=== PATIENT | female | born 1950 | race Caucasian/White ===

== ENCOUNTER → 2016-11-19 | Outpatient (CLI) | payer OTHER, MEDICARE ==
[2016-02-06 16:00] VITALS: BP 150/65
[~2016-11-19] MED LIST: ASCO500C PO; ASPI-630 PO; ATOR20TA PO; CALC-77 PO; CHOL10003 PO; CYAN500T PO; DICL1TAB5 PO; ESTR1TAB15 PO; FERR325T58 PO; LANS30CA66 PO; LORA10TA68 PO; METO25TA2 PO; MULT-246 PO; OMEG300C PO; SOLI5TAB2 PO; SUCR1TAB PO; TRAM50TA PO; VALS1TAB22 PO; [UNRECOGNIZED DRUG - CODE] PO; [UNRECOGNIZED DRUG - OTHER]
--- NOTE | 2016-11-19 08:38 | RAD ---
Indication: Shortness of breath. Time of exam 0832 hours. Correlation is made with prior exam from 09/09/2016. FINDINGS: The heart size is normal. The lungs are clear. No pleural effusion or pneumothorax is identified. The pulmonary vascularity is normal. IMPRESSION: No acute abnormality detected.
== END | disposition home or self-care (01) ==
LOC: DXRADRC 08:27
PROVIDERS: ATTEND Physician Assistant Medical
DX: R06.02 Shortness of breath (principal); R05 Cough
CPT/HCPCS: 71020

== ENCOUNTER → 2018-08-20 | Outpatient (CLI) | payer OTHER, MEDICARE ==
[2016-02-06 16:00] VITALS: BP 150/65
[~2018-08-20] MED LIST changes: -CYAN500T PO; +CYAN500T2 PO
--- NOTE | 2018-08-20 09:31 | RAD ---
CHEST PA LATERAL History: Cough for one week Comparison: November 19, 2016 Findings: 2 views of the chest are submitted. There is no infiltrate, pneumothorax, or effusion. The cardiac silhouette is within normal limits in size. Impression: 1. No acute radiographic abnormality is identified. Electronically signed by: Som Shields MD (08/20/2018 9:26 AM) [id number]
== END | disposition home or self-care (01) ==
LOC: PMG 08:58
PROVIDERS: ATTEND Physician Assistant
DX: R05 Cough (principal)
CPT/HCPCS: 71046

== ENCOUNTER → 2018-09-06 | Outpatient (CLI) | payer OTHER, MEDICARE ==
[2016-02-06 16:00] VITALS: BP 150/65
[~2018-09-06] MED LIST changes: +CYAN500T PO; -CYAN500T2 PO
--- NOTE | 2018-09-06 11:20 | RAD ---
Chest, PA and Lateral: Technique: PA and lateral views of the chest were obtained. History: Chronic cough. Comparison: 08/20/2018. Findings: The heart and pulmonary vasculature appear within normal limits. The lungs are clear. The pleural margins are clear. Mild degenerative changes thoracic spine. Impression: No acute chest process is seen. Electronically signed by: Rigoberto Bonner MD (09/06/2018 11:17 AM) [id number]
== END | disposition home or self-care (01) ==
LOC: PMG 09:29
PROVIDERS: ATTEND Family Medicine
DX: J40 Bronchitis, not specified as acute or chronic (principal); M47.894 Other spondylosis, thoracic region
CPT/HCPCS: 71046

== ENCOUNTER → 2019-02-15 | Outpatient (CLI) | payer OTHER, MEDICARE ==
[2016-02-06 16:00] VITALS: BP 150/65
[~2019-02-15] MED LIST changes: -CYAN500T PO; +CYAN500T2 PO
--- NOTE | 2019-02-15 13:30 | RAD ---
EXAM: Lumbar spine, 5 views. HISTORY: Pain. COMPARISON: None. FINDINGS: 5 views lumbar spine are obtained. There is a transitional lumbosacral segment, considered a partially lumbarized S1 segment for this dictation. There is lumbar dextroscoliosis centered at L4-L5. There is grade 1 anterolisthesis of L5 on S1. There is degenerative endplate remodeling with disc space narrowing and osteophytosis primarily along the right aspect of L1-L2 and left aspect of L4-L5. This corresponds with levels of maximum scoliotic curvature. There is disc space narrowing predominantly at L5-S1. There are calcifications and clips. IMPRESSION: 1. Transitional lumbosacral segment, considered S1 for this dictation. 2. Lumbar scoliosis and grade 1 anterolisthesis of L5 on S1. 3. Multilevel degenerative change throughout the lumbar spine, primarily at levels of maximum scoliotic curvature and at the lumbosacral junction. Electronically signed by: Nicole Guzmán MD (02/15/2019 1:27 PM) [id number]
--- NOTE | 2019-02-15 14:15 | RAD ---
EXAM: Bilateral knees, 3 views. HISTORY: Pain. COMPARISON: None. FINDINGS: 3 views of both knees are obtained. There is a right knee arthroplasty in expected position. There is a small right knee effusion. There is left knee medial compartment joint space narrowing with subchondral sclerosis. There is severe left patellofemoral, moderate left medial and mild left lateral compartment spurring. There is a small left knee effusion. There are left knee joint loose bodies. IMPRESSION: 1. Severe left patellofemoral compartment predominant osteoarthritis of the left knee with small joint effusion and joint loose bodies. 2. Right knee arthroplasty in expected position. There is a small right knee effusion. Electronically signed by: Nicole Guzmán MD (02/15/2019 2:12 PM) [facility]
== END | disposition home or self-care (01) ==
LOC: PMG 08:19
PROVIDERS: ATTEND Physician Assistant Medical
DX: M47.816 Spondylosis without myelopathy or radiculopathy, lumbar region (principal); M48.07 Spinal stenosis, lumbosacral region; M41.87 Other forms of scoliosis, lumbosacral region; M17.12 Unilateral primary osteoarthritis, left knee; M25.461 Effusion, right knee; M25.562 Pain in left knee; M23.42 Loose body in knee, left knee; G89.29 Other chronic pain
CPT/HCPCS: 72110; 73562

== ENCOUNTER → 2020-10-26 | Outpatient (CLI) | payer OTHER, MEDICARE ==
[2016-02-06 16:00] VITALS: BP 150/65
[~2020-10-26] MED LIST changes: -CYAN500T2 PO; +CYAN500T7 PO
--- NOTE | 2020-10-31 13:16 | RAD ---
EXAM: Bilateral digital screening mammogram with tomosynthesis. HISTORY: 70-year-old female presents for screening mammography. TECHNIQUE: Full-field digital craniocaudal and mediolateral oblique 2D and 3D tomosynthesis images of both breasts are obtained for evaluation. Computer aided detection was applied. COMPARISON: 05/30/2019 BREAST PARENCHYMAL DENSITY: Level C - Heterogeneously dense. FINDINGS: There are circumscribed nodular densities within both breasts which are more conspicuous co mpared to the prior exam, possibly due to different is in imaging technique. There is seen within the 6:00 position of the right breast at mid depth, the 4:00 position of the left breast at mid to poste rior depth, the 6:00 position of the left breast at posterior depth and the 6:00 position of the left breast at anterior to mid depth. There are benign calcifications. There is no architectural distorti on. IMPRESSION: BI-RADS Category 0: Incomplete. Additional imaging needed. RECOMMENDATION: Further evaluation with a bilateral breast sonogram is recommended to assess areas of nodularity described above. The mammographic appearance and multiplicity of these lesions favors a b enign etiology such as cysts. These may be more conspicuous due to differences in imaging technique. If your mammogram demonstrates that you have dense breast tissue, which could hide abnormalities, and if you have other risk factors for breast cancer that have been identified, you might benefit from s upplemental screening tests that may be suggested by your ordering physician. Dense breast tissue, i n and of itself, is a relatively common condition. This information is not provided to cause undue c oncern, but rather to raise your awareness and to promote discussion with your physician regarding th e presence of other risk factors, in addition to dense breast tissue. A report of your mammography re sults will be sent to you and your physician. You should contact your physician if you have any ques tions or concerns regarding this report. Mammography is a sensitive method for finding small breast cancers, but it does not detect them all a nd is not a substitute for careful clinical examination. A negative mammogram does not negate a clin ically suspicious finding and should not result in delay in biopsying a clinically suspicious abnorma lity. PQRS compliance statement - Patient information was entered into a reminder system with a target due date for the next mammogram. "Our facility is accredited by the [employer] Mammography [employer]." Electronically signed by: Nicole Guzmán MD (10/31/2020 1:14 PM) [id number]
== END ==
LOC: MAMMO 07:46
PROVIDERS: ATTEND Physician Assistant Medical
DX: Z12.31 Encounter for screening mammogram for malignant neoplasm of breast (principal)
CPT/HCPCS: 77063; 77067

== ENCOUNTER → 2020-11-19 | Outpatient (CLI) | payer OTHER, MEDICARE ==
[2016-02-06 16:00] VITALS: BP 150/65
[~2020-11-19] MED LIST changes: -VALS1TAB22 PO; +VALS1TAB23 PO
--- NOTE | 2020-11-19 16:27 | RAD ---
Bilateral breast sonography Clinical indications: Bilateral breast nodules seen on screening mammogram. RIGHT BREAST SONOGRAPHY: High-resolution sonography of the 6:00 position of the right breast was performed. 2.5 cm from the nipple, a cyst is seen measuring 17 mm in size. Sonography of the right axillary region demonstrates normal appearing lymph nodes. LEFT BREAST SONOGRAPHY: High-resolution sonography of the 3:30 to 6 clock position of the left breast was performed. At the 3:30 position, 5 cm from nipple, a cyst is seen measuring 10 mm in size. At the 6:00 position 1 cm from the nipple, a bilobed complex cyst is seen measuring 12 mm in size. Mild internal echoes are seen. No color flow Doppler seen within it. No other nodule is seen to correspond to the more posterior nodule seen in the mammogram which most likely represents benign nodular breast parenchyma. Sonography of the left axillary region demonstrates normal-appearing lymph nodes. IMPRESSION: Benign findings of both breasts. Recommend routine screening mammography in one year. BI-RADS Category 2, benign finding. The patient information was entered into the data reminder system with a target due date for the next mammogram of October 27, 2021.
== END ==
LOC: US 14:50
PROVIDERS: ATTEND Physician Assistant Medical
DX: R92.2 Inconclusive mammogram (principal)
CPT/HCPCS: 76641

== ENCOUNTER → 2021-04-27 | Outpatient (CLI) | payer OTHER, MEDICARE ==
[2016-02-06 16:00] VITALS: BP 150/65
--- NOTE | 2021-04-27 10:37 | RAD ---
EXAMINATION: Right wrist radiograph. VIEWS: 3 views of the right wrist COMPARISON: None INDICATION:71 years, Female, fall. FINDINGS: No acute fracture, dislocation or subluxation. There are scattered areas of moderate to severe osteoa rthritis most pronounced in the first and second carpometacarpal joints. Soft tissues are unremarkabl e. IMPRESSION: No acute osseous process. Electronically signed by: Toy Santiago DO (04/27/2021 10:35 AM) [id number]
--- NOTE | 2021-04-27 10:44 | RAD ---
XR HAND_RIGHT 3 VIEWS dated 04/27/2021 10:29 AM. History: Reason: / Spl. Instructions: / History: Patient fell. Comparison: None. Findings: No fracture or dislocation is seen. There is mild narrowing of interphalangeal joints and the first c arpometacarpal joint. A tiny metallic foreign body is seen anteriorly at the index finger. Impression: 1. Degenerative changes. No apparent acute abnormality. Electronically signed by: Asim Salcedo Jr., MD (04/27/2021 10:42 AM) [id number]
--- NOTE | 2021-04-27 10:45 | RAD ---
XR SHOULDER_RIGHT 2+ VIEWS History: Fall Comparison: None. Technique: 3 views the right shoulder Findings: Osseous mineralization is normal. No fracture or dislocaton. Mild degenerative changes of the acromio clavicular joint. Visualized lungs are clear. Impression: 1. Degenerative changes without acute osseous abnormality of the right shoulder. Electronically signed by: Barrie Soto MD (04/27/2021 10:43 AM) [facility]
== END ==
LOC: RAD 10:04
PROVIDERS: ATTEND Physician Assistant
DX: S60.221A Contusion of right hand, initial encounter (principal); M19.041 Primary osteoarthritis, right hand; M19.011 Primary osteoarthritis, right shoulder; M25.841 Other specified joint disorders, right hand; X58.XXXA Exposure to other specified factors, initial encounter; Y93.89 Activity, other specified; Y92.89 Other specified places as the place of occurrence of the external cause; Y99.8 Other external cause status
CPT/HCPCS: 73030; 73110; 73130